=== PATIENT | female | born 1975 | race Two or more races ===

== ENCOUNTER 2024-03-12 15:39 | Outpatient (RCR) | payer MEDICAID, SELFPAY | END 2024-03-23 23:59 | disposition home or self-care (01) | LOC: SCTC 15:39 | PROVIDERS: PCP Nurse Practitioner Family; Referring Provider Nurse Practitioner Family; Visit Provider Nurse Practitioner Family | DX: D50.9 Iron deficiency anemia, unspecified (principal); N92.0 Excessive and frequent menstruation with regular cycle | CPT/HCPCS: 99212; G0463 ==

== ENCOUNTER 2024-05-14 08:16 | Outpatient (RCR) | payer MEDICAID, SELFPAY | END 2024-05-24 23:59 | disposition home or self-care (01) | LOC: SCTC 08:16 | PROVIDERS: PCP Nurse Practitioner Family; Referring Provider Nurse Practitioner Family; Visit Provider Nurse Practitioner Family | DX: D50.9 Iron deficiency anemia, unspecified (principal); N92.0 Excessive and frequent menstruation with regular cycle; K64.9 Unspecified hemorrhoids | CPT/HCPCS: 99212; G0463 ==

== ENCOUNTER 2024-07-11 07:43 | Outpatient (RCR) | payer MEDICAID, SELFPAY | END 2024-07-22 23:59 | disposition home or self-care (01) | LOC: SCTC 07:43 | PROVIDERS: PCP Nurse Practitioner Family; Referring Provider Nurse Practitioner Family; Visit Provider Nurse Practitioner Family | DX: D50.9 Iron deficiency anemia, unspecified (principal); K64.9 Unspecified hemorrhoids | CPT/HCPCS: 99212; G0463 ==

== ENCOUNTER 2024-09-11 14:42 | Outpatient (RCR) | payer MEDICAID, SELFPAY | END 2024-09-21 23:59 | disposition home or self-care (01) | LOC: SCTC 14:42 | PROVIDERS: PCP Family Medicine; Referring Provider Family Medicine; Visit Provider Nurse Practitioner Family | DX: D50.9 Iron deficiency anemia, unspecified (principal); E53.8 Deficiency of other specified B group vitamins; Z87.19 Personal history of other diseases of the digestive system | CPT/HCPCS: 99212; G0463 ==

== ENCOUNTER 2025-01-14 15:19 | Outpatient (RCR) | payer MEDICAID, SELFPAY | END 2025-01-21 23:59 | disposition home or self-care (01) | LOC: SCTC 15:19 | PROVIDERS: PCP Family Medicine; Referring Provider Family Medicine; Visit Provider Nurse Practitioner Family | DX: D50.9 Iron deficiency anemia, unspecified (principal); K59.09 Other constipation; K64.9 Unspecified hemorrhoids | CPT/HCPCS: 99212; G0463 ==